=== PATIENT | female | born 1950 | race American Indian/Alaskan Native ===

== ENCOUNTER 2017-08-17 06:07 | Day surgery (SDC) | payer OTHER ==
[~2017-08-17 06:07] MED LIST: Dextrose 5%-0.45% NaCl 1,000 ML IV SCH; Midazolam 1 MG/ML 2 ML SDV ONE; Sodium Chloride 0.9% 10 ML Syringe FLUSH PRN; fentaNYL 100 MCG/2 ML SDV ONE
[2017-08-17] MEDS ORDERED: Midazolam 1 MG/ML 2 ML SDV IV ONE ×6 (06:08→07:19)
[2017-08-17] MEDS ORDERED: fentaNYL 100 MCG/2 ML SDV IV ONE ×3 (06:08→07:03)
--- NOTE | 2017-08-17 08:59 | OR ---
DATE: 08/17/2017 PROCEDURE: Total colonoscopy, NBI, and cold snare polypectomy. INSTRUMENT USED: PCF-H180AL Olympus video colonoscope. PREMEDICATIONS: Fentanyl 100 mcg intravenous, Versed 4 mg intravenous. Nasal O2 cannula. The procedure was done under pulse oximetry, BP recording, and monitoring tech. INDICATION: The patient with Hemoccult positive stools, unexplained. Colonoscopic examination is done for detection of any polypoid lesions and removal, endoscopic hemostasis therapy if needed. DESCRIPTION OF PROCEDURE: Initial rectal exam was unremarkable. Rigid anoscopy was normal. The colonoscope was passed with ease. Few scattered diverticula were noted in the distal left colon with deformity. The colon was found to be tortuous and redundant. The scope was passed with ease up to the ileocecal area, photographs were taken of the normal-appearing cecum identified by double- bulged ileocecal folds. No bleeding was noted from any of the visualized areas at the commencement of the examination. No stricture. No vascular ectasia. No large isolated ulcerations seen. No evidence of diffuse inflammatory bowel disease in the form of friability, contact bleeding, or ulcerations. Probing the proximal sides of folds and flexures, using adequate distention and clearing up the stool material, withdrawal of the scope was made. In the distal transverse colon area, a 5 mm sized the polyp was noted, NBI views were obtained, photographs were taken, cold snare polypectomy was done, the tissue was retrieved and sent for histopathology. No bleeding was noted from any of the visualized areas at the completion of examination. IMPRESSION: 1. Diverticulosis. 2. Colonic polyp. The patient tolerated the procedure well. [facility] /[id number]
--- NOTE | 2017-08-17 09:50 | LETTER ---
08/17/2017 Kathryn Montague MD [facility] [address] [place] [address] RE: BENNIE MUROANNCandice GALVAN : [address] Montague: Ms. Alexx Muro had colonoscopic examination done this morning and she tolerated the procedure well. I herewith send a copy of the endoscopy note and photographs for your review. Thank you. Sincerely, [facility] /[id number]
[2017-08-17 12:10] VITALS: BP 123/65
== END 2017-08-17 09:57 | disposition home or self-care (01) ==
LOC: DL.ENDO 06:07
PROVIDERS: ATTEND Internal Medicine Gastroenterology
DX: D12.3 Benign neoplasm of transverse colon (principal); K57.30 Diverticulosis of large intestine without perforation or abscess without bleeding; F17.210 Nicotine dependence, cigarettes, uncomplicated; E66.09 Other obesity due to excess calories; E11.9 Type 2 diabetes mellitus without complications; G47.30 Sleep apnea, unspecified; E78.5 Hyperlipidemia, unspecified; M19.90 Unspecified osteoarthritis, unspecified site; J45.909 Unspecified asthma, uncomplicated; E73.9 Lactose intolerance, unspecified; K21.9 Gastro-esophageal reflux disease without esophagitis; Z90.49 Acquired absence of other specified parts of digestive tract; Z88.1 Allergy status to other antibiotic agents; Z88.0 Allergy status to penicillin; Z88.6 Allergy status to analgesic agent; Z88.5 Allergy status to narcotic agent; Z88.8 Allergy status to other drugs, medicaments and biological substances
CPT/HCPCS: 45385; J2250; J3010; J7042

== ENCOUNTER 2017-08-26 05:24 | Day surgery (SDC) | payer OTHER ==
[2017-08-26] MEDS ORDERED: fentaNYL 100 MCG/2 ML SDV ONE (06:00)
[2017-08-26] MEDS ORDERED: Dextrose 5%-0.45% NaCl 1,000 ML IV SCH (06:00)
[2017-08-26] MEDS ORDERED: Sodium Chloride 0.9% 10 ML Syringe FLUSH PRN (06:00)
[2017-08-26] MEDS ORDERED: Midazolam 1 MG/ML 2 ML SDV ONE (06:01)
[2017-08-26] MEDS ORDERED: fentaNYL 100 MCG/2 ML SDV IV ONE (06:33)
[2017-08-26] MEDS ORDERED: Midazolam 1 MG/ML 2 ML SDV IV ONE ×2 (06:34→06:35)
--- NOTE | 2017-08-26 07:18 | OR ---
DATE: 08/26/2017 PROCEDURE: Esophagogastroduodenoscopy and multiple pinch biopsies. INSTRUMENT USED: GIF-H180 Olympus video panendoscope. PREMEDICATIONS: No oral topical anesthesia used. Fentanyl 100 mcg intravenous, Versed 1.5 mg intravenous. Nasal O2 cannula. The procedure was done under pulse oximetry, BP recording, and neighborhood aide. INDICATION: The patient with Hemoccult-positive stools, and colonoscopy negative for any bleeding areas. The patient is on long-term aspirin. Esophagogastroduodenoscopy is performed for detection of any active erosive lesions, malignancy also under consideration, H. pylori status to be determined, endoscopic hemostasis therapy if needed. DESCRIPTION OF PROCEDURE: The scope was passed with ease. Adequate visualization of the esophagus was made from proximal to distal areas. No upper esophageal lesions identified. No distal esophageal stricture. No uphill or downhill esophageal varices. No Nelly-Salas tear. No evidence of erosive esophagitis by Kilbourne criteria. No esophageal polyp or tumor mass identified. Z-line was seen at around 40 cm distal to the oral verge, configuration consistent with grade 1 by ZAP classification. No proximal gastric varices noted. Gastric fundus examination by retroflexion showed no polypoid lesions. No gastric ulcer, malignant mass, or vascular ectasia identified. Some patchy erythema was noted in the gastric antrum. Multiple pinch biopsies were taken from the gastric antrum and proximal body and sent for PyloriTek test for H. pylori, and if negative in an hour, tissues to be sent for histopathology. Duodenal bulb showed no ulcer. Visualized second part of the duodenum was unremarkable. No bleeding was noted from any of the visualized areas at the completion of examination. Photographs were taken duodenal bulb, gastric antrum, fundus, and distal esophagus. IMPRESSION: Patchy antral gastritis. The patient tolerated the procedure well. [facility] /[id number]
--- NOTE | 2017-08-26 09:57 | LETTER ---
08/26/2017 Kathryn Montague MD [facility] [address] [place] [address] RE: MARLENE MURO : [address] Montague: Ms. Marlene Muro had esophagogastroduodenoscopy done this morning and she tolerated the procedure well. I herewith send a copy of the endoscopy note and photographs for your review. Thank you. Sincerely, [facility] /[id number]
[2017-08-26 10:36] VITALS: BP 106/62
== END 2017-08-26 08:47 | disposition home or self-care (01) ==
LOC: DL.ENDO 05:24
PROVIDERS: ATTEND Internal Medicine Gastroenterology
DX: K29.50 Unspecified chronic gastritis without bleeding (principal); E66.9 Obesity, unspecified; E11.9 Type 2 diabetes mellitus without complications; G47.33 Obstructive sleep apnea (adult) (pediatric); E78.5 Hyperlipidemia, unspecified; Z88.1 Allergy status to other antibiotic agents; Z88.0 Allergy status to penicillin; Z88.8 Allergy status to other drugs, medicaments and biological substances; Z79.82 Long term (current) use of aspirin; F17.210 Nicotine dependence, cigarettes, uncomplicated
CPT/HCPCS: 43239; 87077; J7042; J2250; J3010

== ENCOUNTER 2019-09-27 09:32 | Emergency (ER) | payer BC, OTHER ==
[2019-09-27 09:53] VITALS: BP 143/74
[2019-09-27] MEDS ORDERED: Sodium Chloride 0.9% 10 ML Syringe FLUSH PRN (09:53)
--- NOTE | 2019-09-27 10:19 | EDM.PDOC ---
<Eleanor Garay - Last Filed: 09/27/19 12:21> ED HPI GENERAL MEDICAL PROBLEM - General Chief Complaint: Respiratory Problem Stated Complaint: SHORTNESS OF BREATH,COUGHING Time Seen by Provider: 09/27/19 10:14 Source of Information: Reports: Patient History Limitations: Reports: No Limitations - History of Present Illness INITIAL COMMENTS - FREE TEXT/NARRATIVE: Patient presents to the ED by private vehicle with concerns of cough and shortness of breath. The patient states that she has been suffering from the cough for the past 2 weeks. She describes productive cough with yellow/green mucous and burning chest pain. She denies sinus congestion, nasal drainage, sore throat. She has previously been treated with doxycycline, which she started on 09/24/2019, and a course of prednisone which she completed last week. She is also using tessalon pearles, albuterol as needed, and a nebulizer daily. The patient is unsure of which nebulizer medication she has been using, as she has been prescribed both albuterol/ipratropium as well as budesonide. The patient states she uses the nebulizer every 5-6 hours. The patient admits to being sedentary over the past 2 weeks due to the cough. She denies recent travel , prolonged car rides. She is a smoker. She also has sarcoidosis. Onset: Other (2 weeks ago) Duration: Constant, Improving (patient describes wheezing has improved, cough has not ) Quality: Reports: Burning (midline chest pain), Stabbing Improves with: Reports: None Worsens with: Reports: Other (talking, walking increase shortness of breath), Movement Associated Symptoms: Reports: cough w sputum, Loss of Appetite, Shortness of Breath Treatments LEGEND MAKER: Reports: Breathing Treatments (nebulizer, albuterol), Other Medication(s) (tessalon pearles) - Related Data Allergies Allergy/AdvReac Type Severity Reaction Status Date / Time cephalexin Allergy Hives Verified 09/27/19 09:53 codeine Allergy Abdominal Verified 09/27/19 09:53 Pain dextromethorphan Allergy Hives Verified 09/27/19 09:53 [From Robitussin Cough and Cold CF] guaifenesin Allergy Hives Verified 09/27/19 09:53 [From Robitussin Cough and Cold CF] penicillin G Allergy Hives Verified 09/27/19 09:53 phenylephrine Allergy Hives Verified 0312/20 09:53 [From Robitussin Cough and Cold CF] aspirin AdvReac Stomach Verified 09/27/19 09:53 Upset Home Meds: Home Meds Aspirin [Children's Aspirin] 81 mg PO DAILY 07/26/15 [History] Simvastatin [Zocor] 10 mg PO BEDTIME 07/26/15 [History] lisinopriL [Prinivil] 5 mg PO DAILY 07/26/15 [History] Alogliptin Benzoate [Alogliptin] 25 mg PO DAILY 05/30/19 [History] Ibuprofen 800 mg PO Q6HR PRN 05/30/19 [History] Oxybutynin Chloride 5 mg PO DAILY 05/30/19 [History] metFORMIN HCl [Metformin HCl] 1,000 mg PO BID 05/30/19 [History] Past Medical History HEENT History: Reports: Hard of Hearing, Impaired Vision Other HEENT History: wear glasses. hearing aides Cardiovascular History: Reports: High Cholesterol, Hypertension Respiratory History: Reports: Asthma, Sleep Apnea, Other (See Below) Other Respiratory History: SARCOIDOSIS OF LUNG. HX OF TOBACCO HABITUATION. MAGALY Gastrointestinal History: Reports: Colon Polyp, GERD, Other (See Below) Other Gastrointestinal History: some occult blood in stool. LACTOSE INTOLERANCE. HX OF SESSILE SERRATED ADENOMA POLYP REMOVED Genitourinary History: Reports: Urinary Incontinence UNIFORM MAKER History: Reports: Ectopic , , Spontaneous Musculoskeletal History: Reports: Arthritis Neurological History: Reports: None Psychiatric History: Reports: ADD Endocrine/Metabolic History: Reports: Diabetes, Type II, Obesity/BMI 30+ Hematologic History: Reports: None Immunologic History: Reports: None Oncologic (Cancer) History: Reports: None Dermatologic History: Reports: Other (See Below) Other Dermatologic History: ACTINIC CHEILITIS - Infectious Disease History Infectious Disease History: Reports: Chicken Pox, Measles - Past Surgical History Head Surgeries/Procedures: Reports: None HEENT Surgical History: Reports: None Cardiovascular Surgical History: Reports: None GI Surgical History: Reports: Cholecystectomy, Colonoscopy, Polypectomy Endocrine Surgical History: Reports: None Neurological Surgical History: Reports: None Musculoskeletal Surgical History: Reports: Knee Replacement, Other (See Below) Other Musculoskeletal Surgeries/Procedures:: Total knee replacement 07/01/15. hardware in knee Dermatological Surgical History: Reports: Other (See Below) Social & Family History - Family History Family Medical History: Noncontributory - Tobacco Use Smoking Status *Q: Current Every Day Smoker Years of Tobacco use: 54 Packs/Tins Daily: 0.5 Second Hand Smoke Exposure: No - Caffeine Use Caffeine Use: Reports: Coffee Caffeine Use Comment: 2 cups coffee daily - Recreational Drug Use Recreational Drug Use: No ED ROS GENERAL - Review of Systems Review Of Systems: See Below Constitutional: Reports: Decreased Appetite. Denies: Fever, Chills Respiratory: Reports: Shortness of Breath, Wheezing, Cough, Sputum Cardiovascular: Reports: Dyspnea on Exertion GI/Abdominal: Reports: Decreased Appetite. Denies: Abdominal Pain, Bloody Stool , Constipation, Diarrhea, Hematemesis, Nausea, Vomiting : Reports: No Symptoms Musculoskeletal: Reports: Leg Pain (admits cramping in bilateral lower legs) Skin: Denies: Rash Neurological: Reports: No Symptoms ED EXAM, GENERAL - Physical Exam Exam: See Below Exam Limited By: No Limitations General Appearance: Alert, No Apparent Distress Ears: Normal External Exam, Normal Canal, Hearing Grossly Normal, Normal TMs Nose: Normal Inspection, Normal Mucosa Throat/Mouth: Normal Inspection, Normal Lips, Normal Gums, Normal Oropharynx, Other (vocally sounds tachypneic) Head: Atraumatic Neck: Normal Inspection, Supple, Non-Tender Respiratory/Chest: No Respiratory Distress, Lungs Clear, Normal Breath Sounds, Accessory Muscle Use Cardiovascular: Normal Peripheral Pulses, Regular Rate, Rhythm, No Edema, No Murmur GI/Abdominal: Soft, Non-Tender Extremities: Leg Pain (palpable tenderness to bilateral calves) Neurological: Alert, Oriented, No Motor/Sensory Deficits Psychiatric: Normal Affect, Normal Mood Skin Exam: Warm, Dry, Intact, No Rash Lymphatic: No Adenopathy Course - Vital Signs Last Recorded V/S: Last Vital Signs Temp 97.5 F 09/27/19 09:44 Pulse 99 09/27/19 12:24 Resp 24 H 09/27/19 09:44 BP 143/74 H 09/27/19 09:44 Pulse Ox 96 09/27/19 09:44 - Orders/Labs/Meds Orders: Active Orders 24 hr Category Date Time Status Peripheral IV Care [RC] . DIRECTED Care 09/27/19 09:53 Active RT Aerosol Therapy [RC] ASDIRECTED Care 09/27/19 12:10 Active Chest w Cont [CT] Stat Exams 09/27/19 10:27 Taken Sodium Chloride 0.9% [Saline Flush] Med 09/27/19 09:53 Active 10 ml FLUSH ASDIRECTED PRN Isolation [COMM] Routine Oth 09/27/19 09:49 Active Peripheral IV Insertion Adult [OM.PC] Stat Oth 09/27/19 09:53 Ordered Medication Orders Sodium Chloride (Saline Flush) 10 ml FLUSH ASDIRECTED PRN PRN Reason: Keep Vein Open Last Admin: 09/27/19 10:23 Dose: 10 ml Labs: Laboratory Tests 09/27/19 09/27/19 09/27/19 Range/Units 09:57 09:57 09:57 WBC 12.5 H (5.0-10.0) 10^3/uL RBC 4.86 (4.2-5.4) 10^6/uL Hgb 14.7 (12.0-16.0) g/dL Hct 44.3 (37.0-47.0) % MCV 91.2 (80-100) fL MCH 30.2 (27.0-34.0) pg MCHC 33.2 (33.0-35.0) g/dL Plt Count 291 D (150-450) 10^3/uL Neut % (Auto) 76.6 H (42.2-75.2) % Lymph % (Auto) 16.2 L (20.5-50.1) % Haines % (Auto) 5.7 (2-8) % Eos % (Auto) 1.4 (1.0-3.0) % Baso % (Auto) 0.1 (0.0-1.0) % ESR 23 H (0-20) mm/hr Sodium 138 (136-145) mmol/L Potassium 4.1 (3.5-5.1) mmol/L Chloride 101 (98-107) mmol/L Carbon Dioxide 28 (21-32) mmol/L Anion Gap 13.1 H (7-13) mEq/L BUN 10 (7-18) mg/dL Creatinine 0.82 (0.55-1.02) mg/dL Est Cr Clr Drug Dosing 57.44 mL/min Estimated GFR (MDRD) > 60 BUN/Creatinine Ratio 12.2 (No establ ref range) Glucose 208 H (74-99) mg/dL Calcium 8.6 (8.5-10.1) mg/dL Magnesium 2.2 (1.8-2.4) mg/dL Total Bilirubin 0.6 (0.2-1.0) mg/dL AST 42 H (15-37) U/L ALT 55 (14-59) U/L Alkaline Phosphatase 149 H (46-116) U/L Total Protein 7.5 (6.4-8.2) g/dL Albumin 3.3 L (3.4-5.0) g/dL Globulin 4.2 Albumin/Globulin Ratio 0.79 Meds: Medications Generic Name Dose Route Start Last Admin Trade Name Freq PRN Reason Stop Dose Admin Sodium Chloride 10 ml 09/27/19 09:53 09/27/19 10:23 Saline Flush FLUSH 10 ml ASDIRECTED PRN Administration Keep Vein Open Discontinued Medications Generic Name Dose Route Start Last Admin Trade Name Freq PRN Reason Stop Dose Admin Albuterol/Ipratropium 3 ml 09/27/19 12:10 09/27/19 12:24 Duoneb 3.0-0.5 Mg/3 Ml NEB 09/27/19 12:11 3 ml ONETIME ONE Administration Iopamidol 100 ml 09/27/19 10:27 09/27/19 11:40 Isovue-370 (76%) IVPUSH 09/27/19 10:28 90 ml ONETIME ONE Administration - Radiology Interpretation Free Text/Narrative:: CT chest reveals no evidence of pulmonary embolism. Persistent left lower lob subpleural soft tissue density pulmonary nodule, measuring 9X5 mm, slightly more elongated compared to prior study, may be due to slice selection. Predominantly peripheral interstital fibrotic changes again involving all lobes , slightly more pronounced in the right middle lobe. Radiologist feels pulmonary nodule likely benign, Fleischner criteria not applied. - Re-Assessments/Exams Free Text/Narrative Re-Assessment/Exam: 09/27/19 12:24 Nebulizer treatment- duoneb given by RT at 12:24 pm Departure - Departure Time of Disposition: 12:28 Disposition: Home, Self-Care 01 Condition: Fair Clinical Impression: Bronchitis, COPD exacerbation - Discharge Information *PRESCRIPTION DRUG MONITORING PROGRAM REVIEWED*: Not Applicable *COPY OF PRESCRIPTION DRUG MONITORING REPORT IN PATIENT CARLEEN: Not Applicable Instructions: Chronic Obstructive Pulmonary Disease Exacerbation, Vefx-of-Uref , Steps to Quit Smoking, [id number], How to Use a Metered Dose Inhaler, Acute Bronchitis, Adult, [id number] Forms: ED Department Discharge Additional Instructions: Albuterol/Duoneb nebulizer every 4 hours while awake. Budesonide nebulizer 2 times daily. Albuterol inhaler as needed. Finish course of doxycycline. Follow-up with Dr. Cason this Tuesday or Tuesday. Sepsis Event Note - Evaluation Sepsis Screening Result: No Definite Risk - Focused Exam Vital Signs: Vital Signs Temp Pulse Resp BP Pulse Ox 09/27/19 12:24 99 09/27/19 09:44 97.5 F 85 24 H 143/74 H 96 Date Exam was Performed: 09/27/19 Time Exam was Performed: 12:21 - My Orders Last 24 Hours: My Active Orders 09/27/19 09:53 Peripheral IV Care [RC] . DIRECTED Sodium Chloride 0.9% [Saline Flush] 10 ml FLUSH ASDIRECTED PRN Peripheral IV Insertion Adult [OM.PC] Stat 09/27/19 10:27 Chest w Cont [CT] Stat 09/27/19 12:10 RT Aerosol Therapy [RC] ASDIRECTED - Assessment/Plan Last 24 Hours: My Active Orders 09/27/19 09:53 Peripheral IV Care [RC] . DIRECTED Sodium Chloride 0.9% [Saline Flush] 10 ml FLUSH ASDIRECTED PRN Peripheral IV Insertion Adult [OM.PC] Stat 09/27/19 10:27 Chest w Cont [CT] Stat 09/27/19 12:10 RT Aerosol Therapy [RC] ASDIRECTED <Moiz Chris - Last Filed: 09/27/19 12:29> Course - Re-Assessments/Exams Free Text/Narrative Re-Assessment/Exam: 09/27/19 I personally performed or re-performed the physical examination and medical decision making. I have verified all student documentation or findings, including history, physical exam and/or medical decision making. Sepsis Event Note - Focused Exam Date Exam was Performed: 09/27/19 Time Exam was Performed: 12:28
[2019-09-27 10:23] LABS: ANION GAP 13.1 mEq/L (7-13); CHLORIDE,CL 101 mmol/L (98-107); SODIUM,NA 138 mmol/L (136-145)
[2019-09-27] MEDS ORDERED: Iopamidol 755 Mg/ML 100 ML Bottle IVPUSH ONE (10:27)
[2019-09-27] MEDS ORDERED: Albuterol/Ipratropium 3.0-0.5 MG/3 ML Neb Soln NEB ONE (12:10)
[2019-09-27 12:25] VITALS: PULSE 99
== END 2019-09-27 12:40 | disposition home or self-care (01) ==
LOC: DL.ED 09:32
DX: J44.1 Chronic obstructive pulmonary disease with (acute) exacerbation (principal); I10 Essential (primary) hypertension; E11.9 Type 2 diabetes mellitus without complications; E66.9 Obesity, unspecified; F17.210 Nicotine dependence, cigarettes, uncomplicated; Z90.49 Acquired absence of other specified parts of digestive tract; Z88.1 Allergy status to other antibiotic agents; Z88.5 Allergy status to narcotic agent; Z79.899 Other long term (current) drug therapy; Z79.84 Long term (current) use of oral hypoglycemic drugs; Z79.82 Long term (current) use of aspirin; Z88.0 Allergy status to penicillin; Z88.6 Allergy status to analgesic agent; Z88.8 Allergy status to other drugs, medicaments and biological substances
CPT/HCPCS: 36415; 71260; 80053; 83735; 85025; 85651; 87804; 94640; 99285; Q9967; J7620-GY

== ENCOUNTER 2022-06-02 14:48 | Emergency (ER) | payer OTHER, BC ==
[2022-06-02 14:54] VITALS: BP 128/66; PULSE 70
[2022-06-02] MEDS ORDERED: Sodium Chloride 0.9% 10 ML Syringe FLUSH PRN (15:40)
[2022-06-02] MEDS ORDERED: HYDROmorphone 1 MG/ML Syringe IVPUSH ONE (15:40)
[2022-06-02] MEDS ORDERED: Acetaminophen/oxyCODONE 325-5 MG Tab PO ONE (17:25)
== END 2022-06-02 17:53 | disposition home or self-care (01) ==
LOC: DL.ED 14:48
DX: S82.841A Displaced bimalleolar fracture of right lower leg, initial encounter for closed fracture (principal); S20.211A Contusion of right front wall of thorax, initial encounter; E78.00 Pure hypercholesterolemia, unspecified; I10 Essential (primary) hypertension; E11.9 Type 2 diabetes mellitus without complications; E66.9 Obesity, unspecified; Z68.28 Body mass index [BMI] 28.0-28.9, adult; Z88.0 Allergy status to penicillin; Z88.5 Allergy status to narcotic agent; Z88.8 Allergy status to other drugs, medicaments and biological substances; Z79.84 Long term (current) use of oral hypoglycemic drugs; Z79.899 Other long term (current) drug therapy; V49.40XA Driver injured in collision with unspecified motor vehicles in traffic accident, initial encounter; Y92.410 Unspecified street and highway as the place of occurrence of the external cause
CPT/HCPCS: 71101; 73610; 96374; 99284; A9270; J1170; J3490

== ENCOUNTER 2022-06-07 18:06 | Emergency (ER) | payer BC, OTHER ==
[2022-06-07 18:33] VITALS: BP 108/97; PULSE 77
== END 2022-06-07 21:37 | disposition left against medical advice (07) ==
LOC: DL.ED 18:06
DX: Z53.21 Procedure and treatment not carried out due to patient leaving prior to being seen by health care provider (principal)

== ENCOUNTER 2024-10-24 10:51 | Day surgery (SDC) | payer MEDICARE, OTHER ==
[~2024-10-24 10:51] MED LIST changes: +Dexamethasone 4 MG/ML SDV ONE; -Dextrose 5%-0.45% NaCl 1,000 ML IV SCH; -Midazolam 1 MG/ML 2 ML SDV ONE; +Proparacaine 0.5% Ophth Soln 15 ML Bottle ONE; -Sodium Chloride 0.9% 10 ML Syringe FLUSH PRN; -fentaNYL 100 MCG/2 ML SDV ONE
[2024-10-24] MEDS ORDERED: Ondansetron 4 MG/2 ML SDV IVPUSH PRN (11:00)
[2024-10-24] MEDS ORDERED: Acetaminophen 325 MG Tab PO PRN (11:00)
[2024-10-24] MEDS: Proparacaine 0.5% Ophth Soln 15 ML Bottle EYELF ONE ×2 (11:32→12:09)
[2024-10-24] MEDS: Povidone-Iodine 5% Sterile Ophth Soln 30 ML Bottle EYELF ONE ×2 (11:33→12:09)
[2024-10-24] MEDS: Moxifloxacin 0.5% Ophth Soln 3 ML Bottle EYELF ONE (11:33)
[2024-10-24] MEDS: Tropicamide 1% Ophth Soln 15 ML Bottle EYELF ONE (11:34)
[2024-10-24] MEDS: Timolol Maleate 0.5% Ophth Soln 5 ML Bottle EYELF ONE (11:35)
[2024-10-24] MEDS: Cataract Ophth Solution EYELF ONE (11:36)
[2024-10-24] MEDS: Sodium Chloride 0.9% 10 ML Syringe FLUSH ONE (11:45)
[2024-10-24] MEDS: Apraclonidine 0.5% Ophth Soln 5 ML Bot EYELF ONE (12:10)
[2024-10-24] MEDS: Diclofenac Sodium 0.1% Ophth Soln 5 ML Bottle EYELF ONE (12:10)
[2024-10-24] MEDS: Dexamethasone/Neomycin/Polymyxin B Ophth Oint 3.5 GM Tube EYELF ONE (12:11)
[2024-10-24] MEDS: Lidocaine 1% 30 ML SDV INJECT ONE (12:12)
[2024-10-24] MEDS: VANCOmycin 500 MG SDV EYELF ONE (12:12)
[2024-10-24 13:09] VITALS: BP 113/72; PULSE 73
== END 2024-10-24 13:30 | disposition home or self-care (01) ==
LOC: DL.SDS 10:51
PROVIDERS: ATTEND Ophthalmology
DX: E11.36 Type 2 diabetes mellitus with diabetic cataract (principal); H25.812 Combined forms of age-related cataract, left eye; K21.9 Gastro-esophageal reflux disease without esophagitis; J45.20 Mild intermittent asthma, uncomplicated; I10 Essential (primary) hypertension; Z79.899 Other long term (current) drug therapy
CPT/HCPCS: A9270-GY; J2003; J3370; J3490

== ENCOUNTER 2024-11-07 09:42 | Emergency (ER) | payer MEDICARE, OTHER ==
[2024-11-07 10:45] LABS: BASOPHILS PERCENT AUTO 0.4 % (0.0-1.0); EOSINOPHILS PERCENT AUTO 3.3 % (1.0-3.0); HEMATOCRIT 41.4 % (37.0-47.0); HEMOGLOBIN 13.3 g/dL (12.0-16.0); LYMPHOCYTES PERCENT AUTO 23.4 % (20.5-50.1); MEAN CORPUSCULAR HEMOGLOBIN 30.9 pg (27.0-34.0); MEAN CORPUSCULAR HGB CONC 32.1 g/dL (33.0-35.0); MEAN CORPUSCULAR VOLUME 96.3 fL (80-100); MONOCYTES PERCENT AUTO 6.4 % (2-8); NEUTROPHILS PERCENT AUTO 66.5 % (42.2-75.2); PLATELET COUNT,PLT 200 10^3/uL (150-450); WHITE BLOOD CELL COUNT,WBC 7.5 10^3/uL (5.0-10.0)
[2024-11-07 11:09] LABS: ANION GAP 11.6 mEq/L (7-13); BLOOD UREA NITROGEN,BUN 15 mg/dL (7-18); CARBON DIOXIDE,CO2 30 mmol/L (21-32); CHLORIDE,CL 108 mmol/L (98-107); CREATININE 0.94 mg/dL (0.55-1.02); GLUCOSE RANDOM 101 mg/dL (70-99); POTASSIUM,K 4.6 mmol/L (3.5-5.1); SODIUM,NA 145 mmol/L (136-145)
[2024-11-07 11:13] LABS: ESTIMATED GFR 63 mL/min (>=60)
[2024-11-07 11:34] VITALS: BP 105/88
[2024-11-07 11:48] VITALS: PULSE 60
== END 2024-11-07 11:48 | disposition home or self-care (01) ==
LOC: DL.ED 09:42
DX: H53.9 Unspecified visual disturbance (principal); I10 Essential (primary) hypertension; E11.9 Type 2 diabetes mellitus without complications; E66.9 Obesity, unspecified; E78.00 Pure hypercholesterolemia, unspecified; F17.210 Nicotine dependence, cigarettes, uncomplicated; J45.909 Unspecified asthma, uncomplicated; M19.90 Unspecified osteoarthritis, unspecified site; Z88.8 Allergy status to other drugs, medicaments and biological substances; Z88.5 Allergy status to narcotic agent; Z88.0 Allergy status to penicillin; Z88.2 Allergy status to sulfonamides; Z88.6 Allergy status to analgesic agent; Z79.899 Other long term (current) drug therapy; Z79.1 Long term (current) use of non-steroidal anti-inflammatories (NSAID); Z79.84 Long term (current) use of oral hypoglycemic drugs; Z90.49 Acquired absence of other specified parts of digestive tract
CPT/HCPCS: 36415; 80048; 84484; 85025; 93005; 99284

== ENCOUNTER 2025-02-06 08:56 | Day surgery (SDC) | payer MEDICARE, OTHER ==
[~2025-02-06 08:56] MED LIST changes: -Dexamethasone 4 MG/ML SDV ONE; -Proparacaine 0.5% Ophth Soln 15 ML Bottle ONE; +Sodium Chloride 0.9% 10 ML Syringe FLUSH PRN
[2025-02-06] MEDS ORDERED: Dexamethasone 4 MG/ML SDV IV ONE (08:57)
[2025-02-06] MEDS ORDERED: Midazolam 1 MG/ML 2 ML SDV IV ONE (08:57)
[2025-02-06] MEDS ORDERED: Sodium Chloride 0.9% 10 ML Syringe IV ONE (08:57)
[2025-02-06] MEDS ORDERED: Ondansetron 4 MG/2 ML SDV IVPUSH PRN (09:00)
[2025-02-06] MEDS: Moxifloxacin 0.5% Ophth Soln 3 ML Bottle EYERT ONE (09:30)
[2025-02-06] MEDS: Povidone-Iodine 5% Sterile Ophth Soln 30 ML Bottle EYERT ONE ×2 (09:31→11:04)
[2025-02-06] MEDS: Timolol Maleate 0.5% Ophth Soln 5 ML Bottle EYERT ONE (09:32)
[2025-02-06] MEDS: Cataract Ophth Solution EYERT ONE (09:34)
[2025-02-06] MEDS: Phenylephrine 10% Ophth Soln 5 ML Bot EYERT ONE (09:43)
[2025-02-06] MEDS: Apraclonidine 0.5% Ophth Soln 5 ML Bot EYERT ONE (11:20)
[2025-02-06] MEDS: Dexamethasone/Tobramycin 0.1-0.3% Ophth Oint 3.5 GM Tube EYERT ONE (11:20)
[2025-02-06] MEDS: Diclofenac Sodium 0.1% Ophth Soln 5 ML Bottle EYERT ONE (11:20)
[2025-02-06 11:38] VITALS: PULSE 65
[2025-02-06 11:53] VITALS: BP 126/64
== END 2025-02-06 11:56 | disposition home or self-care (01) ==
LOC: DL.SDS 08:56
PROVIDERS: ATTEND Ophthalmology
DX: E11.36 Type 2 diabetes mellitus with diabetic cataract (principal); H25.813 Combined forms of age-related cataract, bilateral; K21.9 Gastro-esophageal reflux disease without esophagitis; Z88.0 Allergy status to penicillin; Z88.5 Allergy status to narcotic agent; Z88.6 Allergy status to analgesic agent; Z79.899 Other long term (current) drug therapy
CPT/HCPCS: 00142; 66984; 99100; A9270; C1780; J1100; J2003; J2250; J3373; J3490